=== PATIENT | female | born 1960 | race American Indian/Alaskan Native ===

== ENCOUNTER 2016-06-25 08:23 | Emergency (ER) | payer OTHER ==
[2016-06-25 08:23] VITALS: BMI 31.1
[2016-06-25] MEDS ORDERED: Albuterol-Ipratrop 3 mg / 0.5 (3 ml) UD IH STA (08:35)
--- NOTE | 2016-06-25 08:38 | ED PDOC ---
Arrival/HPI - General Chief Complaint: Cough, Cold, Congestion Time Seen by Provider: 06/25/16 08:27 Historian: Patient - History of Present Illness Narrative History of Present Illness (Text): 06/25/16 08:35 Ashli Taylor is a 55 year old female, with a history of COPD and asthma, presents to the emergency department complaining of non-productive cough and congestion for past 3 days. States she used albuterol breathing treatments at home. Reports that symptoms are associated with sore throat which is worsened while coughing. Denies any chest pain or difficulty breathing. Denies fever, chills, headache, dizziness, nausea, vomiting, diarrhea, or any other complaints at this time. PMD: Dr. Rivera 06/25/16 09:26 Time/Duration: < week (3 days ) Symptom Onset: Gradual Symptom Course: Unchanged Severity Level: Mild Activities at Onset: Light Past Medical History - Provider Review Nursing Documentation Reviewed: Yes - Past History Past History: No Previous - Infectious Disease Hx of Infectious Diseases: None - Tetanus Immunization Tetanus Immunization: Unknown - Reproductive Menopause: Yes - Past Medical History Past Medical History: Non-Contributing - Cardiac Hx Cardiac Disorders: No - Pulmonary Hx Respiratory Disorders: Yes Hx Asthma: Yes Hx Chronic Obstructive Pulmonary Disease (COPD): Yes - Neurological Hx Neurological Disorder: No - HEENT Hx HEENT Disorder: No - Renal Hx Renal Disorder: No - Endocrine/Metabolic Hx Endocrine Disorders: No - Hematological/Oncological Hx Blood Disorders: No - Integumentary Hx Dermatological Disorder: No - Musculoskeletal/Rheumatological Hx Arthritis: Yes - Gastrointestinal Hx Gastrointestinal Disorders: No - Genitourinary/Gynecological Hx Genitourinary Disorders: Yes - Psychiatric Hx Psychophysiologic Disorder: Yes Hx Depression: Yes Hx Substance Use: No - Past Surgical History Past Surgical History: No Previous - Surgical History Hx Appendectomy: Yes - Anesthesia Hx Anesthesia: Yes Hx Anesthesia Reactions: No Hx Malignant Hyperthermia: No - Suicidal Assessment Feels Threatened In Home Enviroment: No Family/Social History - Physician Review Nursing Documentation Reviewed: Yes Family/Social History: No Known Family HX Smoking Status: Heavy Smoker > 10 Cigarettes Daily Hx Alcohol Use: No Hx Substance Use: No Hx Substance Use Treatment: No Allergies/Home Meds Allergies/Adverse Reactions: Allergies Penicillins Allergy (Verified 06/07/16 10:54) ANAPHYLAXIS Review of Systems - Physician Review All systems were reviewed & negative as marked: Yes - Review of Systems Constitutional: Normal. absent: Fatigue, Fevers ENT: Sore Throat, Other (nasal congestion ) Respiratory: Cough. absent: SOB, Sputum Cardiovascular: absent: Chest Pain, Palpitations Gastrointestinal: absent: Abdominal Pain, Nausea, Vomiting, Appetite Changes Neurological: Normal. absent: Headache, Dizziness Psychiatric: Normal Physical Exam Vital Signs Reviewed: Yes Vital Signs Temp Pulse Resp BP Pulse Ox 06/25/16 08:38 97.8 F 76 20 139/72 99 Temperature: Afebrile Blood Pressure: Normal Pulse: Regular Respiratory Rate: Normal Appearance: Positive for: Well-Appearing, Non-Toxic, Comfortable Pain Distress: None Mental Status: Positive for: Alert and Oriented X 3 - Systems Exam Head: Present: Atraumatic, Normocephalic Pupils: Present: PERRL Conjunctiva: Present: Normal Respiratory/Chest: Present: Wheezes (diffuse scattered wheezing ). No: Respiratory Distress, Accessory Muscle Use Cardiovascular: Present: Regular Rate and Rhythm, Normal S1, S2. No: Murmurs Abdomen: Present: Normal Bowel Sounds. No: Tenderness, Distention, Peritoneal Signs Neurological: Present: GCS=15, CN II-XII Intact, Speech Normal Skin: Present: Warm, Dry, Normal Color. No: Rashes Psychiatric: Present: Alert, Oriented x 3, Normal Insight, Normal Concentration Medical Decision Making ED Course and Treatment: 06/25/16 08:40 Impression: A 55 year old female who presents to the ed complaining of dry cough , nasal congestion and sore throat for 3 days. 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 minimal wheezing on initial exam. Plan: -- Chest X-ray -- Duoneb -- prednisone -- influenza -- rapid flu -- Reassess and disposition Progress Notes: 06/25/16 08:41 Patient refusing any blood work at this time. Just wants prednisone and a Chest X-ray. states she will see dr rivera outpt 06/25/16 09:26 06/25/16 09:33 pt reassesed. lung clear. cxr neg. pt asking for d/c. does not wish to wait in er for further observation. 06/25/16 09:36 - Lab Interpretations Lab Results: Lab Results 06/25/16 08:51: Influenza Typ A,B (EIA) Negative for flu a/b, Grp A Beta Strep Ag Negative - RAD Interpretation Radiology Orders: 06/25/16 08:35 CHEST TWO VIEWS (PA/LAT) [RAD] Stat Repulping Supervisor: ED Physician - Medication Orders Current Medication Orders: Discontinued Medications Albuterol/Ipratropium (Duoneb 3 Mg/0.5 Mg (3 Ml) Ud) 3 ml IH STAT STA Stop: 06/25/16 08:36 Last Admin: 06/25/16 08:42 Dose: 3 ML Guaifenesin (Robitussin) 100 mg PO STAT STA Stop: 06/25/16 09:23 Last Admin: 06/25/16 09:33 Dose: 100 MG Prednisone (Prednisone Tab) 50 mg PO STAT STA Stop: 06/25/16 08:36 Last Admin: 06/25/16 08:42 Dose: 50 MG - Scribe Statement The provider has reviewed the documentation as recorded by the Morgan Castillo Provider Attestation: All medical record entries made by the Morgan were at my direction and personally dictated by me. I have reviewed the chart and agree that the record accurately reflects my personal performance of the history, physical exam, medical decision making, and the department course for this patient. I have also personally directed, reviewed, and agree with the discharge instructions and disposition. Disposition/Present on Arrival - Present on Arrival Any Indicators Present on Arrival: No History of DVT/PE: No History of Uncontrolled Diabetes: No Urinary Catheter: No History of Decub. Ulcer: No History Surgical Site Infection Following: None - Disposition Have Diagnosis and Disposition been Completed?: Yes Diagnosis: COPD (chronic obstructive pulmonary disease) Disposition: HOME/ ROUTINE Disposition Time: 09:33 Patient Problems: Current Active Problems Problem Status Diagnosed COPD (chronic obstructive pulmonary disease) Acute Condition: STABLE Discharge Instructions (ExitCare): Asthma (ED), COPD (Chronic Obstructive Pulmonary Disease) (ED) Additional Instructions: please follow up with your doctor. return to er with worsening symptoms or concerns. Prescriptions: Prednisone 50 mg PO DAILY #5 tab Benzonatate [Tessalon Perle] 100 mg PO TID PRN #15 capsule PRN Reason: Cough Referrals: Lynn Rivera MD [Primary Care Provider] - Follow up with primary
[2016-06-25 08:46] VITALS: TEMP 97.8
[2016-06-25] MEDS ORDERED: guaiFENesin 100 mg/5 ml Syrup UD PO STA (09:22)
--- NOTE | 2016-06-25 09:29 | RAD ---
HISTORY: cough COMPARISON: No prior. TECHNIQUE: Chest PA and lateral FINDINGS: LUNGS: No active pulmonary disease. PLEURA: No significant pleural effusion identified. No pneumothorax apparent. CARDIOVASCULAR: Normal. OSSEOUS STRUCTURES: No significant abnormalities. VISUALIZED UPPER ABDOMEN: Normal. OTHER FINDINGS: None. IMPRESSION: No active disease.
[2016-06-25 09:57] VITALS: BP 126/87; PULSE 79; RESP 18; O2SAT 98
== END 2016-06-25 09:57 | disposition home or self-care (01) ==
LOC: ED 08:23
DX: J44.9 Chronic obstructive pulmonary disease, unspecified (principal); Z88.0 Allergy status to penicillin

== ENCOUNTER 2017-05-06 15:58 | Emergency (ER) | payer MEDICAID, OTHER ==
[2017-05-06 15:58] VITALS: BMI 31.1
--- NOTE | 2017-05-06 16:20 | ED PDOC ---
Arrival/HPI - General Chief Complaint: Flu-like Symptoms Time Seen by Provider: 05/06/17 16:16 Historian: Patient EM Caveat: Acuity of Condition - History of Present Illness Narrative History of Present Illness (Text): 05/06/17 16:17 Pt is a 56 yo female who complains of flu-like symptoms x 1 day. Pt has asthma and often has a cough but since visiting her sister this morning, who was tested positive for the flu, she now chills, body pain and nausea. Pt reports getting the flu shot this year. Denies chest pain, shortness of breath, vomiting , diarrhea, stomach pain or any other complaints. Duoneb treatment done at home today that relieved her chronic cough. Time/Duration: 4-6 hours Symptom Onset: Sudden Symptom Course: Worsening Quality: Pressure, Tightness Severity Level: 4 Activities at Onset: Rest, Light Context: Home Past Medical History - Provider Review Nursing Documentation Reviewed: Yes - Travel History Have you recently traveled outside [place] w/in the past 3 mons?: No - Past History Past History: No Previous - Infectious Disease Hx of Infectious Diseases: None - Tetanus Immunization Tetanus Immunization: Unknown - Past Medical History Past Medical History: Non-Contributing - Cardiac Hx Cardiac Disorders: No - Pulmonary Hx Respiratory Disorders: Yes Hx Asthma: Yes Hx Chronic Obstructive Pulmonary Disease (COPD): Yes - Neurological Hx Neurological Disorder: No - HEENT Hx HEENT Disorder: No - Renal Hx Renal Disorder: No - Endocrine/Metabolic Hx Endocrine Disorders: No - Hematological/Oncological Hx Blood Disorders: No - Integumentary Hx Dermatological Disorder: No - Musculoskeletal/Rheumatological Hx Arthritis: Yes - Gastrointestinal Hx Gastrointestinal Disorders: No - Genitourinary/Gynecological Hx Genitourinary Disorders: Yes - Psychiatric Hx Psychophysiologic Disorder: Yes Hx Depression: Yes Hx Substance Use: No - Past Surgical History Past Surgical History: No Previous - Surgical History Hx Appendectomy: Yes - Anesthesia Hx Anesthesia: Yes Hx Anesthesia Reactions: No Hx Malignant Hyperthermia: No - Suicidal Assessment Feels Threatened In Home Enviroment: No Family/Social History - Physician Review Nursing Documentation Reviewed: Yes Family/Social History: Unknown Family HX Smoking Status: Heavy Smoker > 10 Cigarettes Daily Hx Alcohol Use: No Hx Substance Use: No Hx Substance Use Treatment: No Allergies/Home Meds Allergies/Adverse Reactions: Allergies Penicillins Allergy (Verified 05/06/17 16:31) ANAPHYLAXIS fruit Allergy (Uncoded 05/06/17 16:31) ANAPHYLAXIS Review of Systems - Physician Review All systems were reviewed & negative as marked: Yes - Review of Systems Constitutional: Fatigue, Fevers Eyes: Normal ENT: Normal Respiratory: Normal Cardiovascular: Normal Gastrointestinal: Nausea Genitourinary Female: Normal Musculoskeletal: Arthralgias Skin: Normal Neurological: Normal Endocrine: Normal Hemo/Lymphatic: Normal Psychiatric: Normal Physical Exam Vital Signs Reviewed: Yes Vital Signs Temp Pulse Resp BP Pulse Ox 05/06/17 17:35 99.8 F H 97 H 16 127/76 96 05/06/17 17:34 99.8 F H 05/06/17 16:58 100.1 F H 05/06/17 16:25 100.1 F H 100 H 18 129/88 94 L Temperature: Afebrile Blood Pressure: Normal Pulse: Regular Respiratory Rate: Normal Appearance: Positive for: Well-Appearing, Non-Toxic, Comfortable Pain Distress: None Mental Status: Positive for: Alert and Oriented X 3 - Systems Exam Head: Present: Atraumatic, Normocephalic Pupils: Present: PERRL Extroacular Muscles: Present: EOMI Conjunctiva: Present: Normal Mouth: Present: Moist Mucous Membranes Pharnyx: Present: Normal Neck: Present: Normal Range of Motion Respiratory/Chest: Present: Good Air Exchange, Wheezes (mild on expiration ( baseline)). No: Respiratory Distress, Accessory Muscle Use Cardiovascular: Present: Regular Rate and Rhythm, Normal S1, S2. No: Murmurs Abdomen: Present: Normal Bowel Sounds. No: Tenderness, Distention, Peritoneal Signs Back: Present: Normal Inspection Upper Extremity: Present: Normal Inspection. No: Cyanosis, Edema Lower Extremity: Present: Normal Inspection. No: Edema Neurological: Present: GCS=15, CN II-XII Intact, Speech Normal Skin: Present: Warm, Dry, Normal Color. No: Rashes Psychiatric: Present: Alert, Oriented x 3, Normal Insight, Normal Concentration Medical Decision Making ED Course and Treatment: 05/06/17 16:21 Impression Pt is a 56 yo female who complains of flu-like symptoms x 1 day. PE positive for mild wheezing on lung auscultation, otherwise exam benign Plan Rapid Flu test Assess and dispo Progress Note Pt developed fever of 100.1 F and was given Tylenol 975 mg po VSS and advised to take prescribed Tamiflu and Tylenol at home to reduce fever and pain F/U with PMD in the next 2-3 days - Lab Interpretations Lab Results: Lab Results 05/06/17 16:26: Influenza Typ A,B (EIA) Negative for flu a/b I have reviewed the lab results: Yes (Influenza Typ A,B (EIA) Negative for flu a /b) Interpretation: All labs normal - Medication Orders Current Medication Orders: Discontinued Medications Acetaminophen (Tylenol 325mg Tab) 975 mg PO STAT STA Stop: 05/06/17 16:51 Last Admin: 05/06/17 16:58 Dose: 975 mg MAR Pain/Vitals Document 05/06/17 16:58 SE (Rec: 05/06/17 16:58 [facility] [id number] Pain Reassessment Is This A Pain ReAssessment? No Sleep Is patient sleeping during reassessment? No Presence of Pain Presence of Pain No Vitals Temperature (97.6 F-99.6 F) 100.1 F Temperature Source Oral Disposition/Present on Arrival - Present on Arrival Any Indicators Present on Arrival: Yes History of DVT/PE: No History of Uncontrolled Diabetes: No Urinary Catheter: No History Surgical Site Infection Following: None - Disposition Have Diagnosis and Disposition been Completed?: Yes Diagnosis: Influenza, Prophylactic measure Disposition: HOME/ ROUTINE Disposition Time: 17:29 Patient Plan: Discharge Condition: STABLE Discharge Instructions (ExitCare): Oseltamivir (By mouth), Influenza (ED) Additional Instructions: Dear Ashli, You have been diagnosed with viral influenza that responds best with supportive care such as plenty of rest, fluids, tylenol or ibuprofen for pain and fever. Please make sure you wash your hands frequently to avoid transmission of the virus to others. We have given you Tamiflu to elp lessen the symptoms and course of the infection. If you experience severe fever, pain, chest pain or shortness of breath of any other alarming symptoms, return to the emergency [facility] immediately. Please follow up with your Primary Doctor in less than a week. All the best in your recovery. Prescriptions: Acetaminophen [8Hr Arthritis Pain Relief] 650 mg PO Q6 5 Days #20 tablet.er Oseltamivir [Tamiflu] 75 mg PO BID 5 Days #10 cap Referrals: Lynn Davis MD [Primary Care Provider] - Follow up with primary Forms: [facility] (Dominican)
[2017-05-06 17:35] VITALS: TEMP 99.8
[2017-05-06 17:36] VITALS: BP 127/76; PULSE 97; RESP 16; O2SAT 96
== END 2017-05-06 17:33 | disposition home or self-care (01) ==
LOC: ED 15:58
DX: J11.1 Influenza due to unidentified influenza virus with other respiratory manifestations (principal); F17.210 Nicotine dependence, cigarettes, uncomplicated; Z29.8 Encounter for other specified prophylactic measures